=== PATIENT | male | born 1985 ===

== ENCOUNTER 2021-05-02 06:50 | Day surgery (SDC) | payer OTHER ==
[~2021-05-02] VITALS: Ht 172.7 cm; Wt 70.3 kg
[2021-05-02 11:34] VITALS: BP 165/100
== END 2021-05-02 11:25 | DRG 355 ==
LOC: ORM 06:50
PROVIDERS: ATTEND Surgery
PROC: 0WQF0ZZ Repair Abdominal Wall, Open Approach (ICD-10-PCS; principal; 2021-05-02)
DX: K43.9 Ventral hernia without obstruction or gangrene (principal)
CPT/HCPCS: J2710